=== PATIENT | female | born 1985 | race American Indian/Alaskan Native ===

== ENCOUNTER 2016-06-14 08:17 | Inpatient (IN) | payer MEDICAID, SELFPAY ==
[2016-06-14] MEDS ORDERED: Misoprostol 400 MCG (4 X 100 MCG TAB) RECTAL PRN (08:43)
[2016-06-14] MEDS ORDERED: Acetaminophen/oxyCODONE 325-5 MG Tab PO PRN (08:43)
[2016-06-14] MEDS ORDERED: Naloxone 2 MG/2 ML Syringe IVPUSH PRN (08:43)
[2016-06-14] MEDS ORDERED: Acetaminophen 325 MG Tab PO PRN (08:43)
[2016-06-14] MEDS ORDERED: ceFAZolin 2 GM in Premix Bag 1 BAG IV ONE (08:43)
[2016-06-14] MEDS ORDERED: Methylergonovine 0.2 MG/1 ML Amp IM PRN (08:43)
[2016-06-14] MEDS ORDERED: Ondansetron 4 MG/2 ML SDV IV PRN (08:43)
[2016-06-14] MEDS ORDERED: Carboprost Tromethamine 250 MCG/1 ML Amp IM ONE (08:43)
[2016-06-14] MEDS ORDERED: Citric Acid/Sodium Citrate Solution 30 ML Cup PO ONE (08:43)
[2016-06-14] MEDS ORDERED: ePHEDrine 50 MG/ML SDV IVPUSH PRN (08:43)
[2016-06-14] MEDS ORDERED: diphenhydrAMINE 50 MG/ML SDV IVPUSH PRN (08:43)
[2016-06-14] MEDS ORDERED: Lactated Ringers 1,000 ML IV SCH (08:45)
[2016-06-14] MEDS: Lactated Ringers 1,000 ML IV SCH ×3 (08:50→16:11)
[2016-06-14] MEDS ORDERED: Oxytocin/Normal Saline 60 UNIT/1,000 ML BAG ONE (09:06)
--- NOTE | 2016-06-14 10:30 | HP ---
PATIENT IDENTIFICATION: Sara Hernandez is a 30-year-old, G4, P3-0-0-3, intrauterine at 38-3/7th weeks confirmed with 20-5/7th weeks' ultrasound, who presents with abdominal pain. HISTORY OF PRESENT ILLNESS: The patient states she has had abdominal pain since 6 o'clock yesterday morning, felt in the lower abdomen, described as pressure but now got worse and described as tightenings coming every 3-4 minutes, felt in the lower abdomen, radiating to the back, they seem to be getting worse over time, nothing seems to make them better. She denies any spotting, bleeding, or leaking. Her course is remarkable for a single umbilical artery, previous x3 with request for repeat low transverse , impaired glucose tolerance as well as infections including a UTI in , trichomoniasis in , and BV in , all treated per [facility] notes. Last oral intake was cheetos and a granola bar around 6:00 a.m. this morning with some water. She is also noted to be GBS negative. Records were called for, reviewed as below and supplemented by patient history. ANTEPARTUM LABS: ABO blood type A positive, negative antibody. Rubella nonimmune. RPR nonreactive. Negative hepatitis B surface antigen. Negative hep C, HIV, GC, and Chlamydia with trichomoniasis and BV with clue cells noted on wet prep. GBS was negative on 05/26/2016, with 1-hour GTT being 143 on 02/08/2016, and on 02/19/2016, 3-hour GTT negative for gestational diabetes mellitus. ALLERGIES: Listed as none. MEDICATIONS: She was on vitamins. PAST MEDICAL HISTORY: Remarkable for GERD, body piercings of nose and ears in the past, wears glasses, using tobacco. PAST SURGICAL HISTORY: Previous low transverse x3. Tonsillectomy and adenoidectomy as well as PE tube placement at age 12. FAMILY HISTORY: Maternal grandmother, paternal uncle and other paternal uncle have cancer. Diabetes runs in the family on both sides as well as multiple births. Thyroid disease runs in the family. Negative family history of defects, bleeding problems, clotting disorders, or anesthesia problems. SOCIAL HISTORY: Lives with boyfriend, Jonathan Fairchild, in [place]. Listed as single, [employer], and not working. REVIEW OF SYSTEMS: Otherwise reviewed and felt to be noncontributory. OBJECTIVE: Vital signs: Per NST dictation, appeared to be stable. General Appearance: Female appears her stated age, acting appropriate fpr age, nontoxic in appearance. Does notice when she has pains but is not breathing through them. More of an excessive pain at this point in time. HEENT: Head is atraumatic. EOMs intact. PERRLA. No scleral icterus. No obvious otorhinorrhea. Mucous membranes are moist with glasses on. Neck: No obvious masses or lesions. Lungs: Clear to auscultation bilaterally. No increased work of breathing. Heart: S1 and S2. Regular rate and rhythm. No obvious extra heart sounds, murmurs, rubs, or gallops. Abdomen: Soft, nontender, and nondistended. Bowel sounds positive. No other organomegaly, pulsatile masses, or obvious hernias. No rebound, rigidity, or guarding. Monitors applied. : Normal external female genitalia. Normal position and presentation of urethra. Vaginal exam reveals her to be 1.5 cm, 25% to 50% effaced, -1 to -2 station, vertex suspected with bag of water felt. Extremities: No peripheral edema. Deep tendon reflexes 2 to 3/4 bilaterally and symmetric in lower extremities. Psych: Mood and affect congruent. Judgment and insight intact. Skin: No cyanosis, clubbing, or jaundice. Tocometer reveals contractions anywhere from every 2 to 8 minutes apart. heart tones in the 130s range and felt to be reassuring. ASSESSMENT: 1. Intrauterine at 38-3/7th weeks, confirmed with 20-5/7th weeks' ultrasound. 2. Abdominal pain/contractions. 3. Previous x3, request for repeat low transverse . 4. Group B Streptococcus negative. 5. Rubella nonimmune. 6. Single umbilical artery with deferring Maternal- Medicine evaluation, but has been doing nonstress test and biophysical profiles. 7. Impaired glucose tolerance. 8. Urinary tract infection in the - treated. 9. Trichomoniasis in - treated. 10.Bacterial vaginosis in the - treated. 11. 4, para 3-0-0-3. PLAN: As the patient has had previous C-sections x3, last oral intake was approximately 6:00 a.m. consisting of a granola bar and some cheetos, we will make her n.p.o. at this point in time, IV fluid bolus, and re-evaluate to see if she is in labor and see if contractions persist. I did discuss that if they do, most likely we will proceed with repeat low transverse . I did discuss with her risks, benefits, alternatives, complications of , including, but not limited to, infection, bleeding, damage to internal organs such as bowel, bladder, tubes, uterus, ovaries, sometimes fetus rarely needing a blood transfusion, and even rarer maternal or . She understands and agrees and wishes to proceed. Verbal and written consent were obtained and questions were answered. The OR crew has been notified for a potential start time at 11:00 a.m. We will re-evaluate around between 10 and 11 after fluid bolus has been given, maintain n.p.o. status, and follow closely. [facility] /[id number]
--- NOTE | 2016-06-14 11:15 | PN ---
DATE: 06/14/2016 SUBJECTIVE: Patient's contractions are getting worse, rated 8/10, felt in the lower abdomen, radiating to the back. OBJECTIVE: heart tones in the 130s range, felt to be reassuring. Tocometer reveals contractions every 2-4 minutes. Vaginal exam reveals her to be 2 cm, 75% effaced, -1 station, vertex suspected. ASSESSMENT AND PLAN: Intrauterine at 38+ weeks, previous section x3, request for repeat low transverse section, now in active labor with contractions and cervical change. We will proceed to the operating room as soon as crew is ready and available. Orders have been placed with an anticipation that this may happen. She has received her IV fluids, and she has been n.p.o. for at least 4-5 hours at this point in time. Consent has been obtained. We will continue to follow clinically and closely. [facility] /[id number]
--- NOTE | 2016-06-14 11:18 | OBOUT ---
DATE: 06/14/2016 DATE AND TIME OF NST: DATE: 06/14/2016. Time: 0822 hours to 0842 hours. REASON FOR NST: 1. Intrauterine at 38-3/7th weeks, confirmed with 20-5/7th weeks' ultrasound. 2. Abdominal pain/contractions. 3. Previous x3, request for repeat low transverse . 4. Group B Streptococcus negative. 5. Rubella nonimmune. 6. Single umbilical artery with deferred Maternal- Medicine evaluation. 7. Impaired glucose tolerance. 8. Urinary tract infection, trichomoniasis, and bacterial vaginosis in the -treated. 9. 4, para 3-0-0-3. NST INTERPRETATION: During this time period, heart tone baseline is approximately 135, and there are at least two 15 x 15 beat per minute accelerations, making this strip reactive. It is also noted to be reassuring. Tocometer reveals potential of 4 to 5 contractions during this time period. ASSESSMENT: 1. Non-stress test reactive and reassuring. 2. Tocometer with contractions. PLAN: Please see admit history for further details. Blood pressure 114/82, heart rate 73, temperature 97.6 for vital signs. [facility] /[id number]
[2016-06-14] MEDS ORDERED: Dexamethasone 4 MG/ML SDV IV ONE (11:19)
[2016-06-14] MEDS ORDERED: Oxytocin/Normal Saline 30 UNIT/500 ML BAG IV ONE (11:19)
[2016-06-14] MEDS ORDERED: Ondansetron 4 MG/2 ML SDV IV ONE (11:19)
[2016-06-14] MEDS ORDERED: Lactated Ringers 1,000 ML IV ONE (11:19)
[2016-06-14] MEDS ORDERED: ePHEDrine 50 MG/ML SDV IV ONE (11:19)
[2016-06-14] MEDS ORDERED: Ketorolac 30 MG/ML SDV IVPUSH ONE (11:19)
[2016-06-14] MEDS ORDERED: Morphine PF 5 MG/10 ML SDV IV ONE (11:19)
[2016-06-14] MEDS ORDERED: Oxytocin/Normal Saline 30 UNIT/500 ML BAG IV SCH (12:00)
--- NOTE | 2016-06-14 12:10 | PCM.SN ---
- Free Text/Narrative Note: Preop. Meds and allergies reviewed w Patient. No complications w previous anesthetics. NPO > 5 hrs. Pos smoker, pos heartburn w .Mallampati 1. Lungs CTAB, heart RRR S1 S2. Risks benefits and alternatives of anesthesia explained to Pt, Pt denies questions or concerns. Plan SAB w GETA back up.
[2016-06-14] MEDS: Prenatal Multivitamin with Calcium/Folic Acid/Iron Tab PO SCH (13:03)
[2016-06-14] MEDS: Ketorolac 30 MG/ML SDV IVPUSH SCH ×2 (17:49→22:21)
[2016-06-15] MEDS: Lactated Ringers 1,000 ML IV SCH (00:08)
[2016-06-15] MEDS: Ketorolac 30 MG/ML SDV IVPUSH SCH (04:09)
[2016-06-15] MEDS: Acetaminophen/oxyCODONE 325-5 MG Tab PO PRN ×5 (06:11→22:58)
[2016-06-15] MEDS: Simethicone 80 MG Tab.Chew PO PRN ×3 (06:11→22:22)
[2016-06-15] MEDS ORDERED: Measles, Mumps & Rubella Vaccine 0.5 ML SDV SUBCUT ONE (08:43)
--- NOTE | 2016-06-15 09:40 | PN ---
DATE: 06/15/2016 Postop day #1, status post repeat low transverse . SUBJECTIVE: The patient is tolerating p.o., ambulating. Mccormick has been removed, has not urinated yet. She is passing gas. Pain is under control. OBJECTIVE: Vital signs: Temperature 97.8, heart rate 66, blood pressure 92/60, respiratory rate 16. Lungs: Clear to auscultation bilaterally. Heart: S1 and S2. Regular rate and rhythm. Abdomen: Firm uterus at approximately umbilicus. Aquacel dressing does have some shadowing, but no saturation noted. No increase in size per nurses. MARCIE hose are on. She does note some varicosities that she has had in the right and that has been chronic. LABORATORY DATA: Reveal white cell count of 11.9, hemoglobin 8.3, platelets 227,000. ASSESSMENT AND PLAN: Postop day #1, status post repeat low transverse C- section, complicated by anemia of acute blood loss with hemoglobin dropping down to 8.3 from 11.7. We will follow clinically and closely as currently asymptomatic. Vital signs are stable. We will follow. She also was noted to have hemorrhage with EBL of 1100 mL with nuchal cord x1 reduced bluntly with delivery. PLAN: We will follow clinically and closely. Potential discharge on Monday, 2 days from now, with her baby as there were some issues with her baby requiring some CPAP and nasal cannula. I did discuss with the patient one of my partners covering in my absence and recommendation to follow up on 06/21/2016, in the clinic, for staple removal as well as with her baby. The patient understands and agrees with the above treatment plan. [facility] /[id number]
[2016-06-15] MEDS: Prenatal Multivitamin with Calcium/Folic Acid/Iron Tab PO SCH (09:57)
[2016-06-15] MEDS: Docusate Sodium 100 MG Cap PO PRN ×2 (09:57→22:21)
--- NOTE | 2016-06-15 10:11 | OR ---
DATE: 06/14/2016 PREOPERATIVE DIAGNOSES: 1. Intrauterine at 38-3/7th weeks, confirmed with 20-5/7th weeks' ultrasound. 2. Abdominal pain/contractions. 3. Previous x3, request repeat low transverse . 4. Active labor with contractions and advancing cervical dilation. 5. Rubella nonimmune. 6. Single umbilical artery, deferred Maternal- Medicine evaluation, has been doing weekly biophysical profiles. 7. Impaired glucose tolerance. 8. Urinary tract infection in the -treated. 9. Trichomoniasis in the -treated. 10.Bacterial vaginosis in the -treated. 11.Group B Streptococcus negative. 12.G4, P3-0-0-3. POSTOPERATIVE DIAGNOSES: 1. Intrauterine at 38-3/7th weeks, confirmed with 20-5/7th weeks' ultrasound-delivered. 2. Abdominal pain/contractions. 3. Previous x3, request repeat low transverse . 4. Active labor with contractions and advancing cervical dilation. 5. Rubella nonimmune. 6. Single umbilical artery, deferred Maternal- Medicine evaluation, has been doing weekly biophysical profiles. 7. Impaired glucose tolerance. 8. Urinary tract infection in the -treated. 9. Trichomoniasis in the -treated. 10.Bacterial vaginosis in the -treated. 11.Group B Streptococcus negative. 12.G4, P3-0-0-3. 13. hemorrhage with an EBL of 1100 mL. 14.Nuchal cord x1, reduced bluntly with delivery. PROCEDURE PERFORMED: NST followed by repeat low transverse . ARTS THERAPIST: 1. Amarilis Tavarez MD. 2. Deja Luke MS III. ANESTHESIA: Spinal. ESTIMATED BLOOD LOSS: 1100 mL. IV FLUIDS: 1100 mL of lactated Ringer's and 250 mL of Pitocin. URINE OUTPUT: 100 mL and clear yellow. START: 1116 hours. UTERINE INCISION: 1121 hours. DELIVERY: 1121 hours. STOP: 1140 hours. FINDINGS: 1. Male, scores of 8 and 9, weight pending. 2. Nuchal cord x1, reduced bluntly with delivery. DESCRIPTION OF PROCEDURE IN DETAIL: After proper consent was obtained, the patient was brought to the operating room where spinal anesthetic was administered. Mccormick was placed in preop under sterile conditions. Abdomen was prepped and draped in the normal sterile fashion with the patient placed in supine position with left lateral tilt. A skin incision was then made over the lower abdomen in transverse Pfannenstiel- type fashion. This was carried down to the fascia, which was scored in the midline. Subcutaneous tissue was raked laterally with Lomax retractor. Fascial incision was extended in a transverse fashion using blunt technique and electrocautery. Tyrel clamps x2 were used to grasp the superior aspect of the fascia, and rectus muscles were dissected from fascia using sharp and blunt technique. In the similar fashion, Tyrel clamps x2 were used to grasp the inferior portion of the incision, and rectus and pyramidalis muscles were dissected from fascia using sharp and blunt technique. Rectus muscles were in the midline with blunt technique. Abdominal cavity was then entered in blunt technique, and incision was extended superiorly and inferiorly with blunt technique. Minimal scarring was noted from the lower uterine region and bladder flap area. These were lysed under direct visualization with electrocautery. Otis O large retractor was then introduced and used. Vesicouterine peritoneum was identified, incised in a transverse fashion with Metzenbaum scissors and bladder flap was made digitally. A curvilinear incision was made on the lower uterine segment at 1121 hours. Uterus was entered sharply. Clear fluid returned. Uterine incision was then extended in a transverse fashion using blunt technique. vertex was then delivered through the incision followed by rest of the infant. Nuchal cord x1 reduced bluntly with delivery. Mouth and nares were suctioned on the patient's lap. Cord was doubly clamped and cut and infant was brought over to team Then, approximately 10 mL of cord blood was obtained for labs. Placenta then delivered with gentle cord traction and fundal massage. Uterine cavity was cleared of all blood clots and debris with lap sponge. Dye clamps were used to grasp the uterine incision. This was closed in running locked fashion and tied at lateral margins. Right at midline there was some bleeding, and a figure of 9 stitch was applied and hemostasis reassured. First inspection of the uterine incision revealed hemostasis. Otis O retractor was then removed and paracolic gutters were cleared of all blood clots and debris with lap sponge. Anterior cul-de-sac was then irrigated copiously and all blood clots and debris were removed with lap sponge. Second and final inspection of the uterine incision and anterior cul-de-sac revealed hemostasis. Rectus muscles were then reapproximated in the midline with [id number] stitch using 1-0 Vicryl. Subfascial tissues were found to be hemostatic. Fascia was closed in a running fashion and tied at lateral margin with 0 looped PDS. Subcutaneous tissue was irrigated copiously, hemostasis reassured. Skin was reapproximated with medium mario. Sterile Aquacel dressing applied. Uterine fundus was firm and was massaged at the conclusion of the case -1 below umbilicus No immediate complications were noted. Sponge, lap, and needle counts were correct. The patient received 2 g of Ancef preoperatively, Pitocin per protocol, and will receive Toradol at the conclusion of case for pain control. Mother and are currently stable at the time of dictation. [facility] /[id number]
--- NOTE | 2016-06-15 10:30 | PCM.SN ---
- Free Text/Narrative Note: Post op. Pt alert and oriented. VSS. Pt denies PRADHAN, backache, parasthesias or nausea. Taking PO well. Ambulating w/o difficulty. Pain controlled. No anesthesia concerns noted.
[2016-06-15] MEDS: Ibuprofen 800 MG Tab PO PRN ×2 (14:18→22:22)
[2016-06-16] MEDS: Acetaminophen/oxyCODONE 325-5 MG Tab PO PRN ×5 (04:46→23:46)
[2016-06-16] MEDS: Prenatal Multivitamin with Calcium/Folic Acid/Iron Tab PO SCH (08:58)
--- NOTE | 2016-06-16 10:59 | PCM.PNPP ---
- General Info Date of Service: 06/16/16 Functional Status: Reports: pain controlled, tolerating diet, ambulating, urinating - Review of Systems General: Denies: fever, weakness, chills HEENT: Reports: no symptoms Pulmonary: Denies: shortness of breath, cough, wheezing Cardiovascular: Denies: chest pain Gastrointestinal: Denies: Abdominal pain, Nausea, Vomiting Genitourinary: Reports: no symptoms Musculoskeletal: Reports: no symptoms Skin: Reports: no symptoms Neurological: Reports: no symptoms Psychiatric: Reports: no symptoms - General Info Date of Service: 06/16/16 - Patient Data Vital Signs - most recent: Last Vital Signs Temp 97.3 F 06/16/16 07:30 Pulse 68 06/16/16 04:00 Resp 20 06/16/16 07:30 BP 105/66 06/16/16 07:30 Pulse Ox 98 06/16/16 07:30 Weight - most recent: 185 lb I&O - last 24 hours: Intake & Output 06/15/16 06/16/16 06/16/16 22:59 06:59 14:59 Intake Total 1200 Balance 1200 Lab Results - last 24 hrs: Laboratory Results - last 24 hr 06/14/16 06/16/16 Range/Units 08:55 06:10 WBC 8.9 (5.0-10.0) 10^3/uL RBC 3.30 L (4.2-5.4) 10^6/uL Hgb 9.0 L (12.0-16.0) g/dL Hct 28.6 L (37.0-47.0) % MCV 86.7 (80-100) fL MCH 27.3 (27.0-34.0) pg MCHC 31.5 L (33.0-35.0) g/dL Plt Count 234 (150-450) 10^3/uL Blood Type A POSITIVE Gel Antibody Screen Negative Med Orders - Current: Current Medications Acetaminophen (Tylenol) 650 mg PO Q6H PRN PRN Reason: mild pain or fever Diphenhydramine HCl (Benadryl) 25 mg IVPUSH Q6H PRN PRN Reason: Itching or Nausea Last Admin: 06/14/16 13:14 Dose: 25 mg Docusate Sodium (Colace) 100 mg PO Q12H PRN PRN Reason: Constipation Last Admin: 06/15/16 22:21 Dose: 100 mg Ephedrine Sulfate (Ephedrine Sulfate) 5 mg IVPUSH SEECOMMENT PRN PRN Reason: Other Lactated Ringer's (Ringers, Lactated) 1,000 mls @ 500 mls/hr IV ASDIRECTED [facility] Last Admin: 06/14/16 14:00 Dose: 500 mls/hr Lactated Ringer's (Ringers, Lactated) 1,000 mls @ 125 mls/hr IV ASDIRECTED [facility] Last Admin: 06/15/16 00:08 Dose: 125 mls/hr Oxytocin/Sodium Chloride (Pitocin In Ns 30 Unit/500 Ml) 30 unit in 500 mls @ 125 mls/hr IV TITRATE [facility] PRN Reason: Protocol Last Titration: 06/14/16 15:03 Dose: 0 mls/hr, 0 mls/hr Ibuprofen (Motrin) 800 mg PO Q8H PRN PRN Reason: mild pain or fever Last Admin: 06/15/16 22:22 Dose: 800 mg Methylergonovine Maleate (Methergine) 0.2 mg IM ONETIME PRN PRN Reason: Excessive Vaginal Bleeding Misoprostol (Cytotec) 800 mcg RECTAL ASDIRECTED PRN PRN Reason: Bleeding Naloxone HCl (Narcan) 0.1 mg IVPUSH SEECOMMENT PRN PRN Reason: Respiratory Depression Ondansetron HCl (Zofran) 4 mg IV Q4H PRN PRN Reason: Nausea/Vomiting Oxycodone/Acetaminophen (Percocet 325-5 Mg) 1 tab PO Q4H PRN PRN Reason: Pain (moderate 4-6) Oxycodone/Acetaminophen (Percocet 325-5 Mg) 2 tab PO Q4H PRN PRN Reason: Pain (moderate 4-6) Last Admin: 06/16/16 08:58 Dose: 2 tab Prenat Multivit/[place]/Iron/Folic Ac ( Plus Iron) 1 each PO DAILY [facility] Last Admin: 06/16/16 08:58 Dose: 1 each Simethicone (Simethicone) 80 mg PO Q4H PRN PRN Reason: Gas Last Admin: 06/15/16 22:22 Dose: 80 mg Discontinued Medications Carboprost Tromethamine (Hemabate Ds) 250 mcg IM ONETIME ONE Stop: 06/14/16 08:44 Last Admin: 06/14/16 18:28 Dose: Not Given Citric Acid/Sodium Citrate (Bicitra Solution) 30 ml PO ONETIME ONE Stop: 06/14/16 08:44 Last Admin: 06/14/16 10:40 Dose: 30 ml Cefazolin Sodium/Dextrose 2 gm (/ Premix) 50 mls @ 100 mls/hr IV ONETIME ONE Stop: 06/14/16 09:12 Last Admin: 06/14/16 10:45 Dose: 100 mls/hr Oxytocin/Sodium Chloride (Pitocin In Ns 30 Unit/500 Ml) Confirm Administered Dose 60 unit in 1,000 mls @ as directed .ROUTE .STK-MED ONE Stop: 06/14/16 09:07 Ketorolac Tromethamine (Toradol) 15 mg IVPUSH Q6H GIBRAN Stop: 06/15/16 04:01 Last Admin: 06/15/16 04:09 Dose: 15 mg Measles/Mumps/Rubella Vaccine Live (M-M-R Ii Vaccine) 0.5 ml SUBCUT .ONCE ONE Stop: 06/15/16 08:44 Last Admin: 06/15/16 09:58 Dose: 0.5 ml - Infant Interaction Disposition, : [place] to Nursery Interaction: Not Applicable Infant Feeding: Bottle Fed Infant (supplements with formula), Breastfed ; Nursed Well, Continues to Breastfeed - Recovery Exam Fundal Tone: Firm Fundal Level: At Umbilicus Fundal Placement: Midline Lochia Amount: Small Lochia Color: Serosa/[place] Perineum Description: Intact, Minimal Bruising/Swelling Episiotomy/Laceration: None Bladder Status: Nonpalpable Urinary Elimination: Other (see below) Other Urinary Elimination, : pt., denies c/o with voiding, urine not observed. - Exam General: alert, oriented HEENT: Pupils equal Neck: supple Lungs: Clear to auscultation, Normal respiratory effort Cardiovascular: regular rate, regular rhythm Abdomen: bowel sounds present, soft, no tenderness, no distension Extremities: edema (mild), other (vericose veins on right lower extremity) Skin: warm, dry, intact Wound/Incisions: healing well, no drainage Neurological: no new focal deficit Psy/Mental Status: alert, normal affect, normal mood - Problem List & Annotations (1) Status post SNOMED Code(s): 650281313, 438942207 Code(s): Z98.891 - HISTORY OF UTERINE SCAR FROM PREVIOUS SURGERY Status: Acute Current Visit: Yes (2) S/P repeat low transverse SNOMED Code(s): 927304919, 664490298, 840500658, 588509411 Code(s): Z98.891 - HISTORY OF UTERINE SCAR FROM PREVIOUS SURGERY Status: Acute Current Visit: Yes (3) Single umbilical artery SNOMED Code(s): 658197798 Code(s): Q27.0 - CONGENITAL ABSENCE AND HYPOPLASIA OF UMBILICAL ARTERY Status: Acute Current Visit: Yes - Problem List Review Problem List Initiated/Reviewed/Updated: Yes - Assessment Assessment:: IUP 38 and 3 no complicated by single umbilical artery BV during - Plan Plan:: COntinue to follow hemoglobin it is now 9.0 yesterday 06/15/16 it was 8.3 Monitor vitals per unit protocol Ambulate as tolerated. as for vericose veins wear compression stockings making sure they come above the vericose veins
[2016-06-16] MEDS: Docusate Sodium 100 MG Cap PO PRN ×2 (11:34→22:56)
[2016-06-16] MEDS: Ibuprofen 800 MG Tab PO PRN ×2 (11:34→19:50)
[2016-06-16] MEDS: Simethicone 80 MG Tab.Chew PO PRN (22:55)
[2016-06-17] MEDS: Ibuprofen 800 MG Tab PO PRN (03:20)
[2016-06-17] MEDS: Simethicone 80 MG Tab.Chew PO PRN ×2 (03:56→08:44)
[2016-06-17] MEDS: Acetaminophen/oxyCODONE 325-5 MG Tab PO PRN ×2 (03:56→08:43)
[2016-06-17 08:36] VITALS: BP 109/70
[2016-06-17] MEDS: Docusate Sodium 100 MG Cap PO PRN (08:44)
[2016-06-17] MEDS: Prenatal Multivitamin with Calcium/Folic Acid/Iron Tab PO SCH (08:44)
--- NOTE | 2016-06-17 08:51 | PCM.DCSUM1 ---
<Deja Luke - Last Filed: 06/17/16 08:52> Discharge Summary - Hospital Course Free Text/Narrative:: Patient is status post C section day 3. Complicated by moderate blood loss Hgb monitored throughout stay is trending up. 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 ) Driving: Do Not Drive Showering/Bathing: May Shower Wound/Incision Care: Do NOT Change Dressing Notify Provider of: Fever, Increased Pain, Swelling and Redness, Drainage, Nausea and/or Vomiting - Discharge Plan Home Medications: Home Meds Acetaminophen [Tylenol] 650 mg PO Q6H PRN 05/19/16 [History] PNV95/Ferrous Fumarate/FA [ Vitamins Tablet] 1 tab PO DAILY 05/19/16 [ History] Ranitidine HCl [Ranitidine] 1 tab PO BID 05/19/16 [History] Acetaminophen/oxyCODONE [Percocet 325-5 MG] 2 tab PO Q4H PRN #30 tablet [Rx] Docusate Sodium [Colace] 100 mg PO Q12H PRN #60 cap 06/17/16 [Rx] Ferrous Sulfate 325 mg PO BID #60 06/17/16 [Rx] Ibuprofen [IJD: Ibuprofen] 600 mg PO Q6HR PRN #30 tablet 06/17/16 [Rx] Vit with Ca/FA/Iron [ Plus Iron] 1 each PO DAILY tablet [Rx] Patient Handouts: Delivery, Care After Referrals: Rey Chamberlain MD [Physician] - (06/21/16 WITH BABY FOR STAPLE REMOVAL AT 10:30 AM, [facility]) - General Info Date of Service: 06/17/16 Functional Status: Reports: pain controlled, tolerating diet, ambulating, urinating - Review of Systems General: Denies: fever, weakness, chills HEENT: Denies: headaches, visual changes Pulmonary: Denies: shortness of breath, cough, wheezing Cardiovascular: Denies: chest pain, palpitations Gastrointestinal: Denies: Nausea, Vomiting Genitourinary: Reports: no symptoms Musculoskeletal: Reports: no symptoms Skin: Reports: other (Vericose veins in right lower extremity tender) Neurological: Reports: no symptoms Psychiatric: Reports: no symptoms - Patient Data Vitals - Most Recent: Last Vital Signs Temp 98.3 F 06/17/16 08:00 Pulse 72 06/17/16 08:00 Resp 16 06/17/16 08:00 BP 109/70 06/17/16 08:00 Pulse Ox 99 06/17/16 08:00 Weight - Most Recent: 83.915 kg Med Orders - Current: Current Medications Acetaminophen (Tylenol) 650 mg PO Q6H PRN PRN Reason: mild pain or fever Diphenhydramine HCl (Benadryl) 25 mg IVPUSH Q6H PRN PRN Reason: Itching or Nausea Last Admin: 06/14/16 13:14 Dose: 25 mg Docusate Sodium (Colace) 100 mg PO Q12H PRN PRN Reason: Constipation Last Admin: 06/17/16 08:44 Dose: 100 mg Ephedrine Sulfate (Ephedrine Sulfate) 5 mg IVPUSH SEECOMMENT PRN PRN Reason: Other Lactated Ringer's (Ringers, Lactated) 1,000 mls @ 500 mls/hr IV ASDIRECTED [facility] Last Admin: 06/14/16 14:00 Dose: 500 mls/hr Lactated Ringer's (Ringers, Lactated) 1,000 mls @ 125 mls/hr IV ASDIRECTED [facility] Last Admin: 06/15/16 00:08 Dose: 125 mls/hr Oxytocin/Sodium Chloride (Pitocin In Ns 30 Unit/500 Ml) 30 unit in 500 mls @ 125 mls/hr IV TITRATE GIBRAN PRN Reason: Protocol Last Titration: 06/14/16 15:03 Dose: 0 mls/hr, 0 mls/hr Ibuprofen (Motrin) 800 mg PO Q8H PRN PRN Reason: mild pain or fever Last Admin: 06/17/16 03:20 Dose: 800 mg Methylergonovine Maleate (Methergine) 0.2 mg IM ONETIME PRN PRN Reason: Excessive Vaginal Bleeding Misoprostol (Cytotec) 800 mcg RECTAL ASDIRECTED PRN PRN Reason: Bleeding Naloxone HCl (Narcan) 0.1 mg IVPUSH SEECOMMENT PRN PRN Reason: Respiratory Depression Ondansetron HCl (Zofran) 4 mg IV Q4H PRN PRN Reason: Nausea/Vomiting Oxycodone/Acetaminophen (Percocet 325-5 Mg) 1 tab PO Q4H PRN PRN Reason: Pain (moderate 4-6) Oxycodone/Acetaminophen (Percocet 325-5 Mg) 2 tab PO Q4H PRN PRN Reason: Pain (moderate 4-6) Last Admin: 06/17/16 08:43 Dose: 2 tab Prenat Multivit/Fire Engineer/Iron/Folic Ac ( Plus Iron) 1 each PO DAILY GIBRAN Last Admin: 06/17/16 08:44 Dose: 1 each Simethicone (Simethicone) 80 mg PO Q4H PRN PRN Reason: Gas Last Admin: 06/17/16 08:44 Dose: 80 mg Discontinued Medications Carboprost Tromethamine (Hemabate Ds) 250 mcg IM ONETIME ONE Stop: 06/14/16 08:44 Last Admin: 06/14/16 18:28 Dose: Not Given Citric Acid/Sodium Citrate (Bicitra Solution) 30 ml PO ONETIME ONE Stop: 06/14/16 08:44 Last Admin: 06/14/16 10:40 Dose: 30 ml Cefazolin Sodium/Dextrose 2 gm (/ Premix) 50 mls @ 100 mls/hr IV ONETIME ONE Stop: 06/14/16 09:12 Last Admin: 06/14/16 10:45 Dose: 100 mls/hr Oxytocin/Sodium Chloride (Pitocin In Ns 30 Unit/500 Ml) Confirm Administered Dose 60 unit in 1,000 mls @ as directed .ROUTE .STK-MED ONE Stop: 06/14/16 09:07 Ketorolac Tromethamine (Toradol) 15 mg IVPUSH Q6H GIBRAN Stop: 06/15/16 04:01 Last Admin: 06/15/16 04:09 Dose: 15 mg Measles/Mumps/Rubella Vaccine Live (M-M-R Ii Vaccine) 0.5 ml SUBCUT .ONCE ONE Stop: 06/15/16 08:44 Last Admin: 06/15/16 09:58 Dose: 0.5 ml - Exam General: Reports: alert, oriented HEENT: Reports: Pupils equal, Pupils reactive Lungs: Reports: Clear to auscultation, Normal respiratory effort Cardiovascular: Reports: regular rate, regular rhythm Abdomen: Reports: bowel sounds present, soft, no distension (Female) Exam: Deferred Rectal (Female) Exam: Deferred Extremities: Reports: no edema Skin: Reports: warm, dry, intact Wound/Incisions: Reports: healing well Neurological: Reports: no new focal deficit Psy/Mental Status: Reports: alert, normal affect, normal mood *Q Meaningful Use (DIS) - VTE *Q VTE Criteria *Q: - Stroke *Q Stroke Criteria *Q: - AMI *Q AMI Criteria *Q: <Amarilis Denney - Last Filed: 06/17/16 19:05> Discharge Summary - Discharge Summary/Plan Comment Discharge Summary/Plan Comment: Patient seen and examined with Deja Luke, MS 3. Agree with her note as scribed on my behalf. -[facility] 06/17/16 [id number] - Patient Data Vitals - Most Recent: Last Vital Signs Temp 98.3 F 06/17/16 08:00 Pulse 72 06/17/16 08:00 Resp 16 06/17/16 08:00 BP 109/70 06/17/16 08:00 Pulse Ox 99 06/17/16 08:00 Med Orders - Current: Current Medications Discontinued Medications Acetaminophen (Tylenol) 650 mg PO Q6H PRN PRN Reason: mild pain or fever Carboprost Tromethamine (Hemabate Ds) 250 mcg IM ONETIME ONE Stop: 06/14/16 08:44 Last Admin: 06/14/16 18:28 Dose: Not Given Citric Acid/Sodium Citrate (Bicitra Solution) 30 ml PO ONETIME ONE Stop: 06/14/16 08:44 Last Admin: 06/14/16 10:40 Dose: 30 ml Diphenhydramine HCl (Benadryl) 25 mg IVPUSH Q6H PRN PRN Reason: Itching or Nausea Last Admin: 06/14/16 13:14 Dose: 25 mg Docusate Sodium (Colace) 100 mg PO Q12H PRN PRN Reason: Constipation Last Admin: 06/17/16 08:44 Dose: 100 mg Ephedrine Sulfate (Ephedrine Sulfate) 5 mg IVPUSH SEECOMMENT PRN PRN Reason: Other Cefazolin Sodium/Dextrose 2 gm (/ Premix) 50 mls @ 100 mls/hr IV ONETIME ONE Stop: 06/14/16 09:12 Last Admin: 06/14/16 10:45 Dose: 100 mls/hr Lactated Ringer's (Ringers, Lactated) 1,000 mls @ 500 mls/hr IV ASDIRECTED [facility] Last Admin: 06/14/16 14:00 Dose: 500 mls/hr Lactated Ringer's (Ringers, Lactated) 1,000 mls @ 125 mls/hr IV ASDIRECTED [facility] Last Admin: 06/15/16 00:08 Dose: 125 mls/hr Oxytocin/Sodium Chloride (Pitocin In Ns 30 Unit/500 Ml) Confirm Administered Dose 60 unit in 1,000 mls @ as directed .ROUTE .STK-MED ONE Stop: 06/14/16 09:07 Oxytocin/Sodium Chloride (Pitocin In Ns 30 Unit/500 Ml) 30 unit in 500 mls @ 125 mls/hr IV TITRATE [facility] PRN Reason: Protocol Last Titration: 06/14/16 15:03 Dose: 0 mls/hr, 0 mls/hr Ibuprofen (Motrin) 800 mg PO Q8H PRN PRN Reason: mild pain or fever Last Admin: 06/17/16 03:20 Dose: 800 mg Ketorolac Tromethamine (Toradol) 15 mg IVPUSH Q6H [facility] Stop: 06/15/16 04:01 Last Admin: 06/15/16 04:09 Dose: 15 mg Measles/Mumps/Rubella Vaccine Live (M-M-R Ii Vaccine) 0.5 ml SUBCUT .ONCE ONE Stop: 06/15/16 08:44 Last Admin: 06/15/16 09:58 Dose: 0.5 ml Methylergonovine Maleate (Methergine) 0.2 mg IM ONETIME PRN PRN Reason: Excessive Vaginal Bleeding Misoprostol (Cytotec) 800 mcg RECTAL ASDIRECTED PRN PRN Reason: Bleeding Naloxone HCl (Narcan) 0.1 mg IVPUSH SEECOMMENT PRN PRN Reason: Respiratory Depression Ondansetron HCl (Zofran) 4 mg IV Q4H PRN PRN Reason: Nausea/Vomiting Oxycodone/Acetaminophen (Percocet 325-5 Mg) 1 tab PO Q4H PRN PRN Reason: Pain (moderate 4-6) Oxycodone/Acetaminophen (Percocet 325-5 Mg) 2 tab PO Q4H PRN PRN Reason: Pain (moderate 4-6) Last Admin: 06/17/16 08:43 Dose: 2 tab Prenat Multivit/[place]/Iron/Folic Ac ( Plus Iron) 1 each PO DAILY GIBRAN Last Admin: 06/17/16 08:44 Dose: 1 each Simethicone (Simethicone) 80 mg PO Q4H PRN PRN Reason: Gas Last Admin: 06/17/16 08:44 Dose: 80 mg *Q Meaningful Use (DIS) - VTE *Q VTE Criteria *Q: - Stroke *Q Stroke Criteria *Q: - AMI *Q AMI Criteria *Q:
== END 2016-06-17 11:20 | disposition swing bed (61) | DRG 766 ==
LOC: DL.OBCHECK 08:17 → UNDOADMOB 11:06 → DL.OB 11:06 → OBSVTOIN 11:21 → DL.OB 11:21
PROVIDERS: ADMIT Family Medicine; ATTEND Family Medicine
PROC: 10D00Z1 Extraction of Products of Conception, Low, Open Approach (ICD-10-PCS; principal; 2016-06-14)
DX: O34.211 Maternal care for low transverse scar from previous cesarean delivery (principal); N85.8 Other specified noninflammatory disorders of uterus; Z3A.39 39 weeks gestation of pregnancy; Z37.0 Single live birth; O69.81X0 Labor and delivery complicated by cord around neck, without compression, not applicable or unspecified
CPT/HCPCS: 01961; 36415; 85027; 86850; 86900; 86901; 90707; 94010; A9270-GY; J0690; J1100; J1200; J1885; J2274; J2405; J2590; J7120

== ENCOUNTER 2016-10-30 04:41 | Emergency (ER) | payer MEDICAID ==
[2016-10-30 04:49] VITALS: BP 131/84
[2016-10-30] MEDS ORDERED: Amoxicillin 500 MG Cap PO ONE (04:56)
--- NOTE | 2016-10-30 05:01 | EDM.PDOC ---
ED HPI GENERAL MEDICAL PROBLEM - General Chief Complaint: ENT Problem Stated Complaint: EARACHE Time Seen by Provider: 10/30/16 04:53 Source of Information: Reports: Patient History Limitations: Reports: No Limitations - History of Present Illness INITIAL COMMENTS - FREE TEXT/NARRATIVE: Sx few days worse tonight Left Ear Pain Score (Numeric/FACES): 6 - Related Data Allergies Allergy/AdvReac Type Severity Reaction Status Date / Time No Known Allergies Allergy Verified 10/30/16 04:53 Home Meds: Home Meds Acetaminophen [Tylenol] 650 mg PO Q6H PRN 05/19/16 [History] Acetaminophen/oxyCODONE [Percocet 325-5 MG] 2 tab PO Q4H PRN #30 tablet [Rx] Ibuprofen [IJD: Ibuprofen] 600 mg PO Q6HR PRN #30 tablet 06/17/16 [Rx] Past Medical History HEENT History: Reports: Impaired Vision Cardiovascular History: Reports: None Respiratory History: Reports: None Gastrointestinal History: Reports: GERD Genitourinary History: Reports: None 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: Musculoskeletal History: Reports: None Neurological History: Reports: None Psychiatric History: Reports: None Endocrine/Metabolic History: Reports: None Hematologic History: Reports: Anemia Immunologic History: Reports: None Oncologic (Cancer) History: Reports: None Dermatologic History: Reports: None - Infectious Disease History Infectious Disease History: Reports: None - Past Surgical History Head Surgeries/Procedures: Reports: None Social & Family History - Family History Family Medical History: Noncontributory - Tobacco Use Smoking Status *Q: Current Every Day Smoker Years of Tobacco use: 13 Packs/Tins Daily: 0.5 Used Tobacco, but Quit: No Second Hand Smoke Exposure: Yes - Caffeine Use Caffeine Use: Reports: Coffee - Recreational Drug Use Recreational Drug Use: No ED ROS ENT - Review of Systems Review Of Systems: ROS reveals no pertinent complaints other than HPI. ED EXAM, ENT - Physical Exam Exam: See Below Exam Limited By: No Limitations General Appearance: Alert, WD/WN, Mild Distress, Other (crying) Ears: TM Dullness, TM Erythema, Other (left) Nose: Clear Rhinorrhea Mouth/Throat: Normal Inspection, Normal Oropharynx Head: Atraumatic Neck: Non-Tender, Full Range of Motion Respiratory/Chest: No Respiratory Distress Cardiovascular: Regular Rate, Rhythm GI/Abdominal: Soft, Non-Tender Neurological: Alert, Oriented, Normal Cognition, Normal Gait, No Motor/Sensory Deficits Psychiatric: Tearful Skin: Warm, Dry Lymphatic: No Adenopathy Course - Vital Signs Last Recorded V/S: Last Vital Signs Temp 36.2 C 10/30/16 04:48 Pulse 76 10/30/16 04:48 Resp 20 10/30/16 04:48 BP 131/84 10/30/16 04:48 Pulse Ox 100 10/30/16 04:48 - Orders/Labs/Meds Meds: Medications Discontinued Medications Generic Name Dose Route Start Last Admin Trade Name Freq PRN Reason Stop Dose Admin Amoxicillin 500 mg 10/30/16 04:56 Amoxil PO 10/30/16 04:57 ONETIME ONE Departure - Departure Time of Disposition: 05:00 Disposition: Home, Self-Care 01 Condition: Good Clinical Impression: Otitis media Qualifiers: Otitis media type: suppurative Chronicity: acute Laterality: left Recurrence: not specified as recurrent Spontaneous tympanic membrane rupture: without spontaneous rupture Qualified Code(s): H66.002 - Acute suppurative otitis media without spontaneous rupture of ear drum, left ear - Discharge Information Instructions: Otitis Media, Adult, [id number] Forms: ED Department Discharge Additional Instructions: 1) don't get water inside ear 2) try not to lay flat to sleep at night rx given; amoxil 250mg tid x30 vicodin 5/325mg bid prn x 12
[2016-10-30] MEDS ORDERED: Acetaminophen/HYDROcodone 325-10 MG Tab ONE (05:04)
[2016-10-30] MEDS ORDERED: Acetaminophen/HYDROcodone 325-10 MG Tab PO ONE (05:04)
== END 2016-10-30 05:08 | disposition home or self-care (01) ==
LOC: DL.ED 04:41
DX: H66.002 Acute suppurative otitis media without spontaneous rupture of ear drum, left ear (principal); H54.7 Unspecified visual loss; K21.9 Gastro-esophageal reflux disease without esophagitis; F17.210 Nicotine dependence, cigarettes, uncomplicated
CPT/HCPCS: 99282; A9270

== ENCOUNTER 2017-03-06 16:41 | Emergency (ER) | payer MEDICAID, SELFPAY ==
[2017-03-06 17:46] VITALS: BP 115/97
--- NOTE | 2017-03-06 19:22 | EDM.PDOC ---
ED HPI GENERAL MEDICAL PROBLEM - General Chief Complaint: Lower Extremity Injury/Pain Stated Complaint: ANKLE INJURY, [id number] Time Seen by Provider: 03/06/17 19:10 Source of Information: Reports: Patient History Limitations: Reports: No Limitations - History of Present Illness INITIAL COMMENTS - FREE TEXT/NARRATIVE: ED ambulatory with limp, C/o pain to right ankle, Stated she steeped on uneven sidewalk while carrying baby and car seat out of daycare.Rolled ankle, heard pop. 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: Musculoskeletal History: Reports: None Neurological History: Reports: None Psychiatric History: Reports: None Endocrine/Metabolic History: Reports: None Hematologic History: Reports: Anemia Immunologic History: Reports: None Oncologic (Cancer) History: Reports: None Dermatologic History: Reports: None - Infectious Disease History Infectious Disease History: Reports: None - Past Surgical History Head Surgeries/Procedures: Reports: None Social & Family History - Family History Family Medical History: Noncontributory - Tobacco Use Smoking Status *Q: Current Some Day Smoker Years of Tobacco use: 16 Packs/Tins Daily: 1 Used Tobacco, but Quit: No Second Hand Smoke Exposure: Yes - Caffeine Use Caffeine Use: Reports: Coffee - Recreational Drug Use Recreational Drug Use: No Review of Systems - Review of Systems Review Of Systems: ROS reveals no pertinent complaints other than HPI. ED EXAM, GENERAL - Physical Exam Exam: See Below Exam Limited By: No Limitations General Appearance: Alert, Mild Distress (with ambulation) Ears: Normal External Exam Throat/Mouth: Normal Voice Respiratory/Chest: No Respiratory Distress Cardiovascular: Regular Rate, Rhythm Extremities: Joint Swelling (lateral right ankle swollen, tender with internal, external rotation and extension) Neurological: Alert, Oriented Course - Vital Signs Last Recorded V/S: Last Vital Signs Temp 98.2 F 03/06/17 16:45 Pulse 71 03/06/17 16:45 Resp 12 03/06/17 16:45 BP 115/97 H 03/06/17 16:45 Pulse Ox 100 03/06/17 16:45 Departure - Departure Time of Disposition: 19:20 Disposition: Home, Self-Care 01 Condition: Good Clinical Impression: Sprain of right ankle Qualifiers: Encounter type: initial encounter Involved ligament of ankle: unspecified ligament Qualified Code(s): S93.401A - Sprain of unspecified ligament of right ankle, initial encounter - Discharge Information Instructions: Ankle Sprain, [id number] Additional Instructions: rest ice elevation marjorie wrap for comfort Tylenol or ibuprofen for discomfort
== END 2017-03-06 19:25 | disposition home or self-care (01) ==
LOC: DL.ED 16:41
DX: S93.401A Sprain of unspecified ligament of right ankle, initial encounter (principal); F17.210 Nicotine dependence, cigarettes, uncomplicated; X50.9XXA Other and unspecified overexertion or strenuous movements or postures, initial encounter; Y92.480 Sidewalk as the place of occurrence of the external cause
CPT/HCPCS: 73610-RT; 99283

== ENCOUNTER 2018-09-18 22:19 | Emergency (ER) | payer MEDICAID, OTHER ==
--- NOTE | 2018-09-18 22:42 | EDM.PDOC ---
ED HPI GENERAL MEDICAL PROBLEM - General Chief Complaint: Eye Problems Stated Complaint: THROAT HURTS [id number] Time Seen by Provider: 09/18/18 22:35 Source of Information: Reports: Patient, RN, RN Notes Reviewed History Limitations: Reports: No Limitations - History of Present Illness INITIAL COMMENTS - FREE TEXT/NARRATIVE: Pt to ER with c/o sore throat that began 2 days ago. Yesterday fever, body aches , headache, right ear pain. Patient states she is a smoker, get SOB at times. Admits to coughing up green sputum. States she had 1 bout of diarrhea yesterday. Denies N/V. States tonsils were removed as a child. Onset: Gradual Onset Date: 09/16/18 Treatments INSURANCE ADJUSTOR: Reports: Acetaminophen Generalized Pain Score (Numeric/FACES): 6 - Related Data Allergies Allergy/AdvReac Type Severity Reaction Status Date / Time No Known Allergies Allergy Verified 09/18/18 22:32 Home Meds: Home Meds . 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 History: Reports: None Neurological History: Reports: None Psychiatric History: Reports: None Endocrine/Metabolic History: Reports: None Hematologic History: Reports: Anemia Immunologic History: Reports: None Oncologic (Cancer) History: Reports: None Dermatologic History: Reports: None - Infectious Disease History Infectious Disease History: Reports: None - Past Surgical History Head Surgeries/Procedures: Reports: None Social & Family History - Family History Family Medical History: Noncontributory - Tobacco Use Smoking Status *Q: Current Every Day Smoker Years of Tobacco use: 17 Packs/Tins Daily: 0.3 Used Tobacco, but Quit: No Second Hand Smoke Exposure: Yes - Caffeine Use Caffeine Use: Reports: Coffee, Soda ED ROS GENERAL - Review of Systems Review Of Systems: ROS reveals no pertinent complaints other than HPI. ED EXAM GENERAL W FULL EYE - Physical Exam Exam: See Below Exam Limited By: No Limitations General Appearance: Alert, WD/WN, Mild Distress Eye Exam: Bilateral Eye: EOMI, Normal Inspection Ears: Normal External Exam, Normal Canal, Hearing Grossly Normal, Normal TMs ( let ear with some fluid behind TM, no erythema) Nose: Normal Inspection, Normal Mucosa, No Blood Throat/Mouth: Normal Inspection, Normal Lips, Normal Teeth, Normal Gums, Normal Oropharynx, Normal Voice, No Airway Compromise Head: Atraumatic, Normocephalic Neck: Supple, Full Range of Motion, Lymphadenopathy (L), Lymphadenopathy (R), Tender Lateral Respiratory/Chest: No Accessory Muscle Use, Chest Non-Tender, Crackles (fine to bases bilaterally) Cardiovascular: Normal Peripheral Pulses, Regular Rate, Rhythm, No Edema, No Gallop, No JVD, No Murmur, No Rub GI/Abdominal: Normal Bowel Sounds, Soft, Non-Tender, No Organomegaly, No Distention, No Abnormal Bruit, No Mass (Male) Exam: Deferred (Female) Exam: Deferred Rectal (Female) Exam: Deferred Back Exam: Normal Inspection, Full Range of Motion, NT Extremities: Normal Inspection Neurological: Alert, Oriented, CN II-XII Intact, Normal Cognition, Normal Gait, Normal Reflexes, No Motor/Sensory Deficits Psychiatric: Normal Affect, Normal Mood Skin Exam: Warm, Dry, Intact, Normal Color, No Rash Lymphatic: Adenopathy (anterior cervical bilaterally) Course - Vital Signs Last Recorded V/S: Last Vital Signs Temp 99.9 F 09/18/18 22:27 Pulse 113 H 09/18/18 22:27 Resp 16 09/18/18 22:27 BP 127/70 09/18/18 22:27 Pulse Ox 98 09/18/18 22:27 - Orders/Labs/Meds Orders: Active Orders 24 hr Category Date Time Status Chest 2V [CR] Urgent Exams 09/18/18 22:40 Taken CULTURE BLOOD [BC] Stat Lab 09/18/18 23:10 Results CULTURE BLOOD [BC] Stat Lab 09/18/18 23:15 Received CULTURE STREP A CONFIRMATION [] Stat Lab 09/18/18 22:23 Results STREP SCRN A RAPID W CULT CONF [RM] Stat Lab 09/18/18 22:23 Results Blood Culture x2 Reflex Set [OM.PC] Stat Oth 09/18/18 23:10 Ordered Labs: Laboratory Tests 09/18/18 09/18/18 09/18/18 Range/Units 23:10 23:10 23:10 WBC 13.6 H (5.0-10.0) 10^3/uL RBC 4.62 (4.2-5.4) 10^6/uL Hgb 13.4 D (12.0-16.0) g/dL Hct 40.6 (37.0-47.0) % MCV 87.9 (80-100) fL MCH 29.0 (27.0-34.0) pg MCHC 33.0 (33.0-35.0) g/dL Plt Count 256 (150-450) 10^3/uL Neut % (Auto) 82.8 H (42.2-75.2) % Lymph % (Auto) 11.1 L (20.5-50.1) % [place] % (Auto) 5.5 (2-8) % Eos % (Auto) 0.4 L (1.0-3.0) % Baso % (Auto) 0.2 (0.0-1.0) % Sodium 134 L (135-145) mmol/L Potassium 3.7 (3.6-5.0) mmol/L Chloride 104 (101-111) mmol/L Carbon Dioxide 20.0 L (21.0-31.0) mmol/L Anion Gap 13.7 BUN 8 (7-18) mg/dL Creatinine 0.5 L (0.6-1.3) mg/dL Est Cr Clr Drug Dosing 128.94 mL/min Estimated GFR (MDRD) > 60 BUN/Creatinine Ratio 16.00 Glucose 90 (74-105) mg/dL Lactic Acid 1.1 (0.5-2.2) mmol/L Calcium 8.1 L (8.4-10.2) mg/dl Total Bilirubin 0.5 (0.2-1.0) mg/dL AST 67 H (10-42) IU/L ALT 80 H (10-60) IU/L Alkaline Phosphatase 117 (42-121) IU/L Total Protein 6.9 (6.7-8.2) g/dl Albumin 3.7 (3.2-5.5) g/dl Globulin 3.2 Albumin/Globulin Ratio 1.16 Rapid Strep: Negative - Radiology Interpretation Free Text/Narrative:: Chest xray: FINDINGS: Lungs: Clear lungs. Pleural space: No pneumothorax. No sizable pleural effusion. Heart/Mediastinum: No cardiomegaly. Bones/joints: Unremarkable. IMPRESSION: Clear lungs. Thank you for allowing us to participate in the care of your patient. Dictated and Authenticated by: Pierre Rogers MD 09/18/2018 11:43 PM Central Time ([place] & [place]) See rad report Departure - Departure Time of Disposition: 23:51 Disposition: Home, Self-Care 01 Condition: Fair Clinical Impression: Sinusitis Qualifiers: Sinusitis location: unspecified location Chronicity: acute Recurrence: not specified as recurrent Qualified Code(s): J01.90 - Acute sinusitis, unspecified - Discharge Information *PRESCRIPTION DRUG MONITORING PROGRAM REVIEWED*: No *COPY OF PRESCRIPTION DRUG MONITORING REPORT IN PATIENT DONNA: No Instructions: Sinusitis, Adult, [id number], How to Perform a Sinus Rinse, [id number], Fever, Adult Forms: ED Department Discharge Additional Instructions: RX: Augmentin Continue using Tylenol and/or Ibuprofen as directed for fever and generalized body aches. Drink plenty of water Rest Follow up with your primary care facility if no improvement - My Orders Last 24 Hours: My Active Orders 09/18/18 22:23 CULTURE STREP A CONFIRMATION [RM] Stat STREP SCRN A RAPID W CULT CONF [RM] Stat 09/18/18 22:40 Chest 2V [CR] Urgent 09/18/18 23:10 CULTURE BLOOD [BC] Stat Blood Culture x2 Reflex Set [OM.PC] Stat 09/18/18 23:15 CULTURE BLOOD [BC] Stat - Assessment/Plan Last 24 Hours: My Active Orders 09/18/18 22:23 CULTURE STREP A CONFIRMATION [RM] Stat STREP SCRN A RAPID W CULT CONF [RM] Stat 09/18/18 22:40 Chest 2V [CR] Urgent 09/18/18 23:10 CULTURE BLOOD [BC] Stat Blood Culture x2 Reflex Set [OM.PC] Stat 09/18/18 23:15 CULTURE BLOOD [BC] Stat
[2018-09-18 23:48] LABS: ANION GAP 13.7; CHLORIDE,CL 104 mmol/L (101-111); SODIUM,NA 134 mmol/L (135-145)
[2018-09-18] MEDS ORDERED: Amoxicillin/Clavulanate K 875-125 MG Tab PO ONE (23:51)
[2018-09-19 00:03] VITALS: BP 133/67
== END 2018-09-19 00:01 | disposition home or self-care (01) ==
LOC: DL.ED 22:19
DX: J01.90 Acute sinusitis, unspecified (principal); F17.210 Nicotine dependence, cigarettes, uncomplicated; K21.9 Gastro-esophageal reflux disease without esophagitis
CPT/HCPCS: 36415; 71046; 80053; 83605; 85025; 87040; 87081; 87430; 99283; A9270

== ENCOUNTER 2020-12-14 06:31 | Emergency (ER) | payer MEDICAID, OTHER ==
[2020-12-14 06:47] VITALS: BP 137/95; PULSE 99
--- NOTE | 2020-12-14 07:14 | EDM.PDOC ---
ED HPI GENERAL MEDICAL PROBLEM - General Chief Complaint: Skin Complaint Stated Complaint: possible infection in upper right thigh Time Seen by Provider: 12/14/20 06:50 Source of Information: Reports: Patient, RN, RN Notes Reviewed History Limitations: Reports: No Limitations - History of Present Illness INITIAL COMMENTS - FREE TEXT/NARRATIVE: Sara is a 35 y/o female who presents to the ED via personal vehicle with complaints of a painful sore to her right groin. The patient reports first noticing the wound four days ago and states it has progressively worsened in that time. Additionally, she notes body chills and transient nausea. She denies fever, palpitations, vomiting, dysuria, hematuria, diarrhea, or drainage from the wound. She has been taking Tylenol q5h and applying warm compresses to the affected area. The patient denies a known history of MRSA. She states she is not prone to frequent skin infections. Right Thigh Pain Score (Numeric/FACES): 6 - Related Data Allergies Allergy/AdvReac Type Severity Reaction Status Date / Time No Known Allergies Allergy Verified 12/14/20 06:47 Home Meds: Home Meds . [No Known Home Meds] 09/18/18 [History] Past Medical History - Past Health History Medical/Surgical History: Denies Medical/Surgical History HEENT History: Reports: Impaired Vision Cardiovascular History: Reports: None Respiratory History: Reports: None Gastrointestinal History: Reports: GERD Genitourinary History: Reports: None SEAMING INSPECTOR History: Reports: Musculoskeletal History: Reports: None Neurological History: Reports: None Psychiatric History: Reports: None Endocrine/Metabolic History: Reports: None Hematologic History: Reports: Anemia Immunologic History: Reports: None Oncologic (Cancer) History: Reports: None Dermatologic History: Reports: None - Infectious Disease History Infectious Disease History: Reports: None - Past Surgical History Head Surgeries/Procedures: Reports: None Social & Family History - Family History Family Medical History: No Pertinent Family History - Tobacco Use Tobacco Use Status *Q: Current Every Day Tobacco User Years of Tobacco use: 20 Packs/Tins Daily: 0.5 Second Hand Smoke Exposure: No - Caffeine Use Caffeine Use: Reports: None - Recreational Drug Use Recreational Drug Use: No ED ROS GENERAL - Review of Systems Review Of Systems: Comprehensive ROS is negative, except as noted in HPI. ED EXAM, SKIN/RASH Exam: See Below Exam Limited By: No Limitations General Appearance: Alert, No Apparent Distress Eye Exam: Bilateral Eye: EOMI, Normal Inspection, PERRL (3mm) Ears: Normal External Exam, Hearing Grossly Normal Nose: Normal Inspection, Normal Mucosa, No Blood Throat/Mouth: Normal Inspection, Normal Oropharynx, Normal Voice, No Airway Compromise Head: Atraumatic, Normocephalic Neck: Normal Inspection, Supple, Non-Tender, Full Range of Motion Respiratory/Chest: No Respiratory Distress, Lungs Clear, Normal Breath Sounds, No Accessory Muscle Use, Chest Non-Tender Cardiovascular: Normal Peripheral Pulses, Regular Rate, Rhythm, No Edema, No Gallop, No JVD, No Murmur, No Rub Peripheral Pulses: 2+: Radial (L), Radial (R) GI/Abdominal: Normal Bowel Sounds, Soft, Non-Tender, No Distention, No Abnormal Bruit, No Mass, Pelvis Stable (Female) Exam: Deferred Rectal (Female) Exam: Deferred Back Exam: Normal Inspection, Full Range of Motion Extremities: Normal Inspection, Normal Range of Motion, Normal Capillary Refill Neurological: Alert, Oriented, CN II-XII Intact, Normal Cognition, Normal Gait, No Motor/Sensory Deficits Psychiatric: Normal Affect, Normal Mood Skin: Dry, Intact, Increased Warmth (To wound), Wound/Incision (Right groin 1cm x 1.5cm hard erythema, no palpable abscess to drain ). No: Normal Color, Ecchymosis, Jaundice, Mottled, Pallor, Petechiae Location, Skin: Genital Characteristics: Erythematous Associated features: Warmth, Tenderness, Swelling, Inflammation. No: Crusting, Weeping Lymphatic: No Adenopathy Course - Vital Signs Last Recorded V/S: Last Vital Signs Temp 97 F 12/14/20 06:42 Pulse 99 12/14/20 06:42 Resp 16 12/14/20 06:42 BP 137/95 H 12/14/20 06:42 Pulse Ox 99 12/14/20 06:42 - Re-Assessments/Exams Free Text/Narrative Re-Assessment/Exam: 12/14/20 Zofran ODT administered for nausea. Findings of examination reviewed with patient. Will treat cellulitis with doxycycline and clindamycin. Discussed supportive cares for cellulitis. Red flag signs and symptoms which would warrant reevaluation reviewed. Patient verbalized understanding and agreement with the plan of care. Departure - Departure Time of Disposition: :12 Disposition: Home, Self-Care 01 Condition: Good Clinical Impression: Cellulitis Qualifiers: Site of cellulitis: other site Qualified Code(s): L03.818 - Cellulitis of other sites - Discharge Information *PRESCRIPTION DRUG MONITORING PROGRAM REVIEWED*: Not Applicable *COPY OF PRESCRIPTION DRUG MONITORING REPORT IN PATIENT DONNA: Not Applicable Instructions: Cellulitis, Adult Forms: ED Department Discharge Additional Instructions: Rx: clindamycin Rx: doxycycline 1.) Take all of your antibiotics until gone, even as symptoms improve. 2.) You may take ibuprofen (Advil/Motrin) 400mg every six hours, as pain and swelling persists. You may also take acetaminophen (Tylenol) 650mg every six hours, as pain persists. You may stagger these medications so you are receiving a dose every three hours. 3.) You may apply ice to the affected area, as swelling persists; 20 minutes on every hour. 4.) Drink plenty of water to stay hydrated and eat a yogurt while taking antibiotics. 5.) Follow up with your primary care provider, or return to the emergency department, with any persistent or worsening symptoms despite medications. Sepsis Event Note (ED) - Focused Exam Vital Signs: Vital Signs Temp Pulse Resp BP Pulse Ox 12/14/20 06:42 97 F 99 16 137/95 H 99
[2020-12-14] MEDS ORDERED: Ondansetron 4 MG Tab.DIS PO ONE (07:19)
== END 2020-12-14 07:27 | disposition home or self-care (01) ==
LOC: DL.ED 06:31
DX: L03.115 Cellulitis of right lower limb (principal); Z72.0 Tobacco use
CPT/HCPCS: 99283; A9270

== ENCOUNTER 2021-11-02 20:58 | Emergency (ER) | payer MEDICAID ==
[2021-11-03 00:07] LABS: ANION GAP 15.2 mEq/L (7-13); CHLORIDE,CL 101 mmol/L (98-107); SODIUM,NA 140 mmol/L (136-145)
[2021-11-03 00:09] LABS: ESTIMATED GFR 93 mL/min (>=60)
[2021-11-03] MEDS: Ondansetron 4 MG/2 ML SDV IVPUSH ONE (00:09)
[2021-11-03] MEDS: Ketorolac 30 MG/ML SDV IVPUSH ONE (00:11)
[2021-11-03] MEDS: MVI, Adult with Vitamin K 10 ML, Thiamine 100 MG, Folic Acid 1 MG in Lactated Ringers 1... IV ONE ×4 (00:21)
[2021-11-03 01:26] VITALS: BP 120/83; PULSE 74
[2021-11-03] MEDS: Iopamidol 612 MG/ML 100 ML Bottle IVPUSH ONE (01:34)
[2021-11-03] MEDS: Piperacillin/Tazobactam 3.375 GM in Sodium Chloride 0.9% 100 ML IV ONE (02:07)
[2021-11-03] MEDS: Metoclopramide 10 MG/2 ML SDV IVPUSH ONE (02:27)
[2021-11-03] MEDS: HYDROmorphone 1 MG/ML Syringe IVPUSH ONE (02:27)
== END 2021-11-03 03:45 ==
LOC: DL.ED 20:58
DX: K80.51 Calculus of bile duct without cholangitis or cholecystitis with obstruction (principal); N30.01 Acute cystitis with hematuria; R74.01 Elevation of levels of liver transaminase levels; R74.8 Abnormal levels of other serum enzymes; F17.210 Nicotine dependence, cigarettes, uncomplicated; Z20.822 Contact with and (suspected) exposure to COVID-19; Z86.16 Personal history of COVID-19
CPT/HCPCS: 36415; 74177; 80053; 81001; 81025; 82150; 83690; 84145; 85025; 86140; 87086; 87088; 87186; 96365; 96367; 96375; 99284; 99285-25; J1170; J1885; J2405; J2543; J2765; J3411; J3490; J7120; Q9967; U0002